=== PATIENT | male | born 1940 | race African-American/Black ===

== ENCOUNTER 2021-05-21 09:52 | Inpatient (IN) | payer MEDICARE, MEDICAID ==
[2021-05-21] VITALS (7 sets, daily range): BP systolic 122–157; BP diastolic 61–86
[~2021-05-21] VITALS: Ht 167.6 cm; Wt 77.1 kg
[~2021-05-21 09:52] MED LIST: HEPARIN SODIUM 1,000 UNIT/1ML VIAL IV ONE; NICARDIPINE 100MCG/ML 10ML VIAL (CATH LAB) IV ONE; NITROGLYCERIN 50MCG/ML 10ML VIAL (CATH LAB) IV ONE
[2021-05-21] MEDS ORDERED: CAND16TA12 PO (10:39)
[2021-05-21] MEDS ORDERED: ASPI-867 MT (10:39)
[2021-05-21] MEDS ORDERED: CLOP-31 PO (10:39)
[2021-05-21] MEDS ORDERED: CRES10 PO (10:39)
[2021-05-21] MEDS ORDERED: MIDAZOLAM HCL 2 MG/2 ML VIAL ONE (11:52)
[2021-05-21] MEDS ORDERED: FENTANYL CITRATE/PF 50MCG/ML 2ML VIAL ONE (11:52)
[2021-05-21] MEDS ORDERED: LIDOCAINE HCL 1% 20ML VIAL (Pyxis) INJ ONE (11:53)
[2021-05-21] MEDS ORDERED: IODIXANOL 320MG/ML 100 ML BOTTLE IV ONE (11:53)
[2021-05-21] MEDS ORDERED: IOHEXOL-300 100 ML BOTTLE ONE (12:43)
[2021-05-21] MEDS ORDERED: CLOPIDOGREL 75MG TABLET ONE (12:45)
[2021-05-21] MEDS ORDERED: ASPIRIN 325MG TABLET ONE (12:46)
[2021-05-21] MEDS ORDERED: ACETAMINOPHEN 325MG TABLET PO PRN (13:15)
[2021-05-21] MEDS ORDERED: ATROPINE SULFATE 1MG/10ML SYR IV PRN (13:15)
[2021-05-21] MEDS: LOSARTAN POTASSIUM 25 MG TABLET PO SCH (16:18)
[2021-05-21] MEDS ORDERED: ATORVASTATIN CALCIUM 20MG TABLET PO SCH (21:00)
[2021-05-22] VITALS (7 sets, daily range): BP systolic 131–136; BP diastolic 55–70
[2021-05-22] MEDS: LOSARTAN POTASSIUM 25 MG TABLET PO SCH (08:06)
[2021-05-22 08:15] LABS: HEMATOCRIT. 31.8 % (42.0-52.0); HEMOGLOBIN. 10.8 g/dL (14.0-18.0); MEAN CORPUSCULAR HEMOGLOBIN 30.4 pg (28.0-32.0); MEAN CORPUSCULAR VOLUME 89.6 fL (80.0-94.0); MEAN PLATELET VOLUME 10.2 fl (7.4-10.4); PLATELET 187 x1000/uL (130-400); RED BLOOD CELL COUNT 3.55 mill/uL (4.7-6.1); RED CELL DISTRIBUTION WIDTH 14.4 % (11.6-14.6)
[2021-05-22] MEDS ORDERED: ASPIRIN 325MG TABLET PO SCH (09:00)
[2021-05-22] MEDS ORDERED: CLOPIDOGREL 75MG TABLET PO SCH (09:00)
[2021-05-22 09:22] LABS: PLATELET ESTIMATE NORMAL
[2021-05-22] MEDS ORDERED: MAGNESIUM GLUCONATE 500MG TABLET PO SCH (10:00)
== END 2021-05-22 12:18 | disposition home or self-care (01) | DRG 247 ==
LOC: CCL 09:52 → 3WST 14:31
PROVIDERS: ADMIT Specialist; ATTEND Specialist
PROC: 027035Z Dilation of Coronary Artery, One Artery with Two Drug-eluting Intraluminal Devices, Percutaneous Approach (ICD-10-PCS; principal; 2021-05-21)
PROC: 4A023N7 Measurement of Cardiac Sampling and Pressure, Left Heart, Percutaneous Approach (ICD-10-PCS; 2021-05-21)
PROC: B211YZZ Fluoroscopy of Multiple Coronary Arteries using Other Contrast (ICD-10-PCS; 2021-05-21)
DX: I25.10 Atherosclerotic heart disease of native coronary artery without angina pectoris (principal); I48.20 Chronic atrial fibrillation, unspecified; E78.5 Hyperlipidemia, unspecified; I10 Essential (primary) hypertension; D64.9 Anemia, unspecified; D72.819 Decreased white blood cell count, unspecified; Z20.822 Contact with and (suspected) exposure to COVID-19; N28.9 Disorder of kidney and ureter, unspecified; Z79.02 Long term (current) use of antithrombotics/antiplatelets; Z79.82 Long term (current) use of aspirin; Z79.899 Other long term (current) drug therapy; Z95.818 Presence of other cardiac implants and grafts
CPT/HCPCS: 36415; 80048; 83735; 85025; 85347; 87426; 92928; 93005; 93458; C1760; C1769; C1874; C1887; C1893; J1644; J2250; J3010; J3490; Q9967